=== PATIENT | female | born 1930 | race African-American/Black ===

== ENCOUNTER → 2017-04-30 | Outpatient (CLI) | payer MEDICARE, OTHER ==
[2015-12-02 13:00] VITALS: BP 169/80
[~2017-04-30] MED LIST: ALBU8.5H6 IH; AMLO5TAB2 PO; ASPI-482 PO; ATOR20TA PO; CALC-274 PO; CALC3.7S5 NS; CITA20TA5 PO; CLOP75TA57 PO; FERR325T72 PO; GLIP5TAB10 PO; ISOS20TA2 PO; LEVO50TA PO; METO-269 PO; NORT10CA PO; OMEP20TA8 PO; PROAIR HFA8.5 GM INH; SITA1TBM4 PO
[2017-04-30 14:09] LABS: BASO % 1 % (0-3); EOS % 3 % (0-3); HEMOGLOBIN 12.1 g/dL (12.0-15.5); LYMPH # 1.8 x10^3/uL (1.0-4.8); LYMPH % 39 % (24-48); MEAN CORPUSCULAR HEMOGLOBIN 32 pg (25-35); MEAN CORPUSCULAR HGB CONC 34 g/dL (31-37); MEAN CORPUSCULAR VOLUME 96 fL (79-100); MONO % 7 % (0-9); NEUT % 50 % (31-73); PLATELET COUNT 245 x10^3/uL (140-400); RED BLOOD COUNT 3.76 x10^6/uL (3.50-5.40); RED CELL DISTRIBUTION WIDTH 13.4 % (11.5-14.5); WHITE BLOOD COUNT 4.5 x10^3/uL (4.0-11.0)
[2017-04-30 14:22] LABS: CALCIUM 8.8 mg/dL (8.5-10.1); GFR 28.7; POTASSIUM 4.4 mmol/L (3.5-5.1)
[2017-04-30 14:26] LABS: CHOLESTEROL/HDL RATIO 3.4
== END | disposition home or self-care (01) ==
LOC: LAB 13:20
PROVIDERS: ATTEND Specialist
DX: E11.9 Type 2 diabetes mellitus without complications (principal); D53.1 Other megaloblastic anemias, not elsewhere classified; E78.5 Hyperlipidemia, unspecified; E03.2 Hypothyroidism due to medicaments and other exogenous substances; D50.9 Iron deficiency anemia, unspecified; E87.8 Other disorders of electrolyte and fluid balance, not elsewhere classified
CPT/HCPCS: 36415; 80048; 80061; 83036; 84443; 85027

== ENCOUNTER → 2017-06-28 | Outpatient (CLI) | payer MEDICARE, OTHER ==
[2015-12-02 13:00] VITALS: BP 169/80
[2017-06-28 09:59] LABS: BASO % 1 % (0-3); EOS % 3 % (0-3); HEMATOCRIT 36.3 % (36.0-47.0); HEMOGLOBIN 11.8 g/dL (12.0-15.5); LYMPH # 1.5 x10^3/uL (1.0-4.8); LYMPH % 35 % (24-48); MEAN CORPUSCULAR HEMOGLOBIN 32 pg (25-35); MEAN CORPUSCULAR HGB CONC 33 g/dL (31-37); MEAN CORPUSCULAR VOLUME 98 fL (79-100); MONO % 7 % (0-9); NEUT % 54 % (31-73); PLATELET COUNT 229 x10^3/uL (140-400); RED BLOOD COUNT 3.72 x10^6/uL (3.50-5.40); RED CELL DISTRIBUTION WIDTH 14.3 % (11.5-14.5); WHITE BLOOD COUNT 4.3 x10^3/uL (4.0-11.0)
[2017-06-28 10:13] LABS: ALBUMIN 3.6 g/dL (3.4-5.0); ALBUMIN/GLOBULIN RATIO 0.9 (1.0-1.7); CALCIUM 9.8 mg/dL (8.5-10.1); CREATININE 1.8 mg/dL (0.6-1.0); GFR 32.4; POTASSIUM 4.5 mmol/L (3.5-5.1); TOTAL BILIRUBIN 0.5 mg/dL (0.2-1.0); TOTAL PROTEIN 7.5 g/dL (6.4-8.2)
[2017-06-29 01:13] LABS: VITAMIN D25(OH)TOTAL 29.1 ng/mL (30.0-100.0)
== END | disposition home or self-care (01) ==
LOC: EDBD 09:28 → LAB 09:28
PROVIDERS: ATTEND Specialist
DX: E11.9 Type 2 diabetes mellitus without complications (principal); M81.8 Other osteoporosis without current pathological fracture
CPT/HCPCS: 36415; 80053; 82306; 83036; 85025

== ENCOUNTER → 2017-08-05 | Outpatient (CLI) | payer MEDICARE, OTHER ==
[2015-12-02 13:00] VITALS: BP 169/80
== END | disposition home or self-care (01) ==
LOC: LAB 10:48
PROVIDERS: ATTEND Specialist
DX: M81.0 Age-related osteoporosis without current pathological fracture (principal); E55.9 Vitamin D deficiency, unspecified
CPT/HCPCS: 36415; 82306